=== PATIENT | female | born 1985 | race Caucasian/White ===

== ENCOUNTER 2017-05-14 13:49 | Emergency (ER) | payer OTHER ==
[2017-05-14 15:55] VITALS: BP 110/72
== END 2017-05-14 15:55 | disposition home or self-care (01) ==
LOC: ED 13:49
DX: J30.9 Allergic rhinitis, unspecified (principal); M54.9 Dorsalgia, unspecified; F17.200 Nicotine dependence, unspecified, uncomplicated
CPT/HCPCS: 99406; Q0092